=== PATIENT | male | born 1990 | race Caucasian/White ===

== ENCOUNTER 2019-03-07 16:42 | Emergency (ER) | payer OTHER ==
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
[2019-03-07 16:48] VITALS: BP 141/98
== END 2019-03-07 17:22 | disposition home or self-care (01) ==
DX: S63.111A Subluxation of metacarpophalangeal joint of right thumb, initial encounter (principal); S60.511A Abrasion of right hand, initial encounter; W22.8XXA Striking against or struck by other objects, initial encounter